=== PATIENT | female | born 1975 | race Caucasian/White ===

== ENCOUNTER 2017-05-21 04:42 | Emergency (ER) | payer OTHER ==
[~2017-05-21] VITALS: Ht 162.6 cm; Wt 87.5 kg
[2017-05-21 04:50] VITALS: Ht 162.6 cm; Wt 87.5 kg
--- NOTE | 2017-05-21 05:08 | ERD ---
ER Documentation Chief Complaint Date/Time DATE: 05/21/17 TIME: 05:07 Chief Complaint left ear and throat pain intermittant x few months, worse today HPI This 41-year-old female presents to emergency department today with left ear pain x 4 months + allergy symptoms, pt reports that now ear is now more painful and she has a sore throat. Patient has not seen her primary care physician for evaluation or treatment of any allergy symptoms, states she uses Claritin, patient denies any change in hearing, denies any difficulty eating or drinking change in voice, jaw pain, fever or chills. ROS All systems reviewed and are negative except as per history of present illness. Allergies Allergies: Coded Allergies: No Known Allergy (Unverified , 05/21/17) PMhx/Soc History of Surgery: Yes ( X 3, GALL STONE REMOVAL.) Anesthesia Reaction: No Hx Neurological Disorder: No Hx Respiratory Disorders: No Hx Cardiac Disorders: No Hx Psychiatric Problems: No Hx Miscellaneous Medical Probl: Yes (HX OF GALL STONES.) Hx Alcohol Use: No Hx Substance Use: No Hx Tobacco Use: No Smoking Status: Never smoker Physical Exam Vitals Vital Signs Date Time Temp Pulse Resp B/P Pulse Ox O2 Delivery O2 Flow Rate FiO2 05/21/17 04:50 99.1 91 20 137/67 100 Vitals stable, triage notes reviewed Physical Exam Const: Well-nourished well-hydrated, well-appearing, no acute distress Head: Atraumatic Eyes: Normal Conjunctiva, PERRLA, EOMI ENT: Tympanic membranes translucent bilaterally with positive light reflex, no erythema no cerumen, nasal mucosa is moist, right turbinate edema +3, no bleeding points. Pharynx is erythemic with cobblestoning uvula is midline rises and falls with pronation Neck: Full range of motion..~ No meningismus. No cervical chain nodes Resp: Clear to auscultation bilaterally no rales wheezes or rhonchi Cardio: Abd: Skin: No petechiae or rashes Back: Ext: Neur: Awake and alert Psych: Normal Mood and Affect Procedures/MDM This pleasant 41-year-old female presents to emergency department for evaluation of a four-month history of allergy symptoms, ear pain predominantly on the left side with new onset of sore throat and worsening of ear pain. No suspicion for peritonsillar abscess, parotiditis, or meningitis. Physical exam findings support allergic rhinitis, will be discharged home with Flonase and Naprosyn for ear pain. Instructed to follow-up with primary physician for full evaluation. Patient reports that she will get medication [id number] does not wish to have any prescribed medication. I feel the patient is stable for discharge at this time. I have discussed results, examination findings, the treatment plan with the patient and family present prior to discharge. Indications for emergent reevaluation, side effects of medication were also discussed. All questions were answered. Patient verbalizes understanding and agrees with plan of care. Departure Diagnosis: Primary Impression: Allergic rhinitis Allergic rhinitis trigger: unspecified Allergic rhinitis seasonality: unspecified seasonality Qualified Code: J30.9 - Allergic rhinitis, unspecified allergic rhinitis trigger, unspecified rhinitis seasonality Condition: Good Patient Instructions: Seasonal Allergy Additional Instructions: Thank you for for coming to [facility] for your care today. Please ask your nurse or provider if you have questions about your care today and do not leave until all your questions have been answered. Please use any medications given as directed and follow-up with your doctor (or the doctor you were referred to) in the next 2-3 days. If you do not have a primary care doctor you may follow up at the [facility] (listed below). You may also use motrin and tylenol as needed for fever and/or pain unless instructed otherwise by your provider or nurse. Indications for more urgent follow-up have been discussed, but you may return to the Emergency Department at ANY time for any worrisome or worsening symptoms. If you have abdominal pain, please know that no test or exam you received is perfect and you should follow up within 8 hours for continued pain. If you had any imaging studies today, such as an X-Ray or CT Scan, these studies will be reviewed later by a radiologist. You will be called if there are important findings that were not identified today, so make sure the contact information you provided at registration is correct. If you received any narcotic pain control medicine today, such as Vicodin, Morphine or Dilaudid, your coordination and judgment may be affected for a number of hours. Please do not drive or operate heavy machinery, and you may want someone to assist you at home. If you were given a prescription for narcotic medication, be aware that it is very addictive- use sparingly and only if necessary. TEA CABRAL May 21, 2017 05:08
== END 2017-05-21 06:12 | disposition home or self-care (01) ==
LOC: FTE 04:42
DX: J30.9 Allergic rhinitis, unspecified (principal)
CPT/HCPCS: 99282